=== PATIENT | male | born 1950 | race Caucasian/White ===

== ENCOUNTER → 2017-08-06 | Outpatient (CLI) | payer MEDICARE, BC ==
[~2017-08-06] MED LIST: COREG 25MG TAB25 MG PO; GLUCOPHAGE 500500 MG PO; IMDUR ER TAB 3030 MG PO; LOPRESSOR50 MG PO; NEURONTIN300 MG PO; NORVASC 5 MG TAB5 MG PO; POTASSIUM CHLO20 ME1 PO; PRAVASTATIN SOD40 MG PO; PRIMIDONE50 MG PO; PROTONIX40 MG PO; SEROQUEL50 MG PO; TOPAMAX25 MG PO
== END ==
LOC: CT 13:00
DX: R10.32 Left lower quadrant pain (principal)

== ENCOUNTER → 2021-04-11 | Outpatient (CLI) | payer MEDICARE ==
[~2021-04-11] MED LIST changes: +ARICEPT5 MG PO; +ASPIRIN81 MG PO; +ATORVASTATIN CA20 MG PO; +B COMPLEX1 EACH PO; +CALTRATE 600MG600 MG PO; +CLOPIDOGREL75 MG PO; +DAILY VALUE1 EACH PO; +DICYCLOMINE HCL10 MG PO; +FISH OIL 1,0001 EACH PO; -GLUCOPHAGE 500500 MG PO; +GLUCOPHAGE1000 MG PO; +GLUCOSAMINE1000 MG PO; +IBU800 MG PO; +IBUPROFEN600 MG PO; +LISINOPRIL10 MG PO; +LOPERAMIDE2 M1 PO; +MAG-OX 400 TAB400 MG PO; -NORVASC 5 MG TAB5 MG PO; +NORVASC5 MG PO; +ONDANSETRON ODT4 MG SL; +PAXIL10 MG PO; +VITAMIN C500 M4 PO; +VITAMIN D325 MCG PO; +ZOFRAN ODT 4 MG4 MG PO
== END ==
LOC: ECHO 13:30
DX: I25.10 Atherosclerotic heart disease of native coronary artery without angina pectoris (principal); I21.9 Acute myocardial infarction, unspecified
CPT/HCPCS: ECHO; 93306

== ENCOUNTER 2021-06-30 09:45 | Observation (INO) | payer MEDICARE ==
[~2021-06-30] VITALS: Ht 177.8 cm; Wt 87.2 kg
[~2021-06-30 09:45] MED LIST changes: -ARICEPT5 MG PO; -GLUCOPHAGE1000 MG PO; +METFORMIN HCL1000 MG PO
[2021-06-30 10:25] LABS: HEMOGLOBIN 14.4 gm/dl (14.0-17.5); RED BLOOD COUNT 4.55 M/UL (4.20-5.50); WHITE BLOOD COUNT 6.5 K/UL (4.5-11.0)
[2021-06-30 10:52] LABS: BUN/CREATININE RATIO 18 (0-10)
[2021-06-30] MEDS ORDERED: ARICEPT10 MG PO (13:50)
[2021-06-30] MEDS ORDERED: ATORVASTATIN CA80 MG PO (15:12)
[2021-06-30] MEDS ORDERED: PAROXETINE HCL10 MG PO (15:21)
[2021-06-30] MEDS ORDERED: PRAVASTATIN SOD40 MG PO (15:21)
[2021-06-30] MEDS ORDERED: TOPIRAMATE50 MG PO (15:22)
[2021-06-30] MEDS ORDERED: CLARITIN 10MG T10 MG PO (15:23)
[2021-06-30] MEDS ORDERED: FUROSEMIDE40 MG PO (15:24)
[2021-07-01 03:48] LABS: HEMOGLOBIN 12.9 gm/dl (14.0-17.5); WHITE BLOOD COUNT 6.9 K/UL (4.5-11.0)
[2021-07-01 03:52] LABS: RED BLOOD COUNT 4.09 M/UL (4.20-5.50)
[2021-07-01 04:46] LABS: ADENOVIRUS F 40/41 Not Detected (Negative); ASTROVIRUS Not Detected (Negative); CAMPYLOBACTER Not Detected (Negative); CLOSTRIDIUM DIFFICILE TOX A/B Not Detected (Negative); CRYPTOSPORIDIUM Not Detected (Negative); E.COLI 0157 Not Detected (Negative); ENTAMOEBA HISTOLYTICA Not Detected (Negative); ENTEROAGGREGATIVE E.COLI (EAEC Not Detected (Negative); ENTEROPATHOGENIC E.COLI (EPEC) Not Detected (Negative); ENTEROTOXIGENIC E.COLI (ETEC) Not Detected (Negative); GIARDIA LAMBLIA Not Detected (Negative); NOROVIRUS GI/GII Not Detected (Negative); PLESIOMONAS SHIGELLOIDES Not Detected (Negative); ROTOVIRUS A Not Detected (Negative); SALMONELLA Not Detected (Negative); SAPOVIRUS Not Detected (Negative); SHIG/ENTEROINVAS.ECOLI (EIEC) Not Detected (Negative); SHIGA-LIK TOX.PRO.E.COLI (STEC Not Detected (Negative); VIBRIO Not Detected (Negative); VIBRIO CHOLERAE Not Detected (Negative); YERSINIA ENTEROCOLITICA Not Detected (Negative)
[2021-07-02] MEDS ORDERED: AMLODIPINE BESYL5 MG PO (09:58)
[2021-07-02] MEDS ORDERED: ATORVASTATIN CA20 MG PO (09:58)
[2021-07-02] MEDS ORDERED: ISOSORBIDE MONO30 MG PO (09:58)
[2021-07-02] MEDS ORDERED: LOPRESSOR 25 MG25 MG PO (09:58)
[2021-07-02] MEDS ORDERED: ISOSORBIDE MONO60 MG PO (10:37)
[2021-07-02] MEDS ORDERED: NORVASC10 MG PO (10:37)
[2021-07-02] MEDS ORDERED: LIPITOR40 MG PO (10:37)
== END 2021-07-02 12:40 | disposition home or self-care (01) ==
LOC: ER1 09:45 → CDU 12:08 → MED SURG 4 19:01
PROVIDERS: Emergency Medicine; Physician Assistant Medical; ADMIT Internal Medicine Infectious Disease
DX: R55 Syncope and collapse (principal); R07.9 Chest pain, unspecified; D69.6 Thrombocytopenia, unspecified; E86.0 Dehydration; I25.10 Atherosclerotic heart disease of native coronary artery without angina pectoris; I25.2 Old myocardial infarction; E11.9 Type 2 diabetes mellitus without complications; I10 Essential (primary) hypertension; E78.5 Hyperlipidemia, unspecified; K21.9 Gastro-esophageal reflux disease without esophagitis; G93.89 Other specified disorders of brain; Z20.822 Contact with and (suspected) exposure to COVID-19; Z95.5 Presence of coronary angioplasty implant and graft; Z86.73 Personal history of transient ischemic attack (TIA), and cerebral infarction without residual deficits; Z79.02 Long term (current) use of antithrombotics/antiplatelets; Z79.84 Long term (current) use of oral hypoglycemic drugs; Z79.899 Other long term (current) drug therapy
CPT/HCPCS: 36415; 70450; 71045; 72125; 80048; 80053; 82550; 82553; 82962; 83735; 83874; 84484; 85025; 85027; 87507; 93005; 93880; 97116; 97116-GP-CQ; 97161; 97165; 97530-GP-CQ; 99285; G0378; U0002

== ENCOUNTER → 2021-07-06 | Outpatient (CLI) | payer MEDICARE ==
[~2021-07-06] MED LIST changes: +AMLODIPINE BESYL5 MG PO; +ARICEPT10 MG PO; +ATORVASTATIN CA80 MG PO; +CLARITIN 10MG T10 MG PO; +FUROSEMIDE40 MG PO; +ISOSORBIDE MONO30 MG PO; +ISOSORBIDE MONO60 MG PO; +LIPITOR40 MG PO; +LOPRESSOR 25 MG25 MG PO; +NORVASC10 MG PO; +PAROXETINE HCL10 MG PO; +TOPIRAMATE50 MG PO
== END ==
LOC: LAB 13:54
PROVIDERS: Family Medicine
DX: R73.02 Impaired glucose tolerance (oral) (principal); E78.5 Hyperlipidemia, unspecified
CPT/HCPCS: 36415; 80053; 80061; 83036

== ENCOUNTER 2021-12-17 12:48 | Inpatient (IN) | payer MEDICARE ==
[~2021-12-17] VITALS: Ht 177.8 cm; Wt 88.5 kg
[2021-12-17 13:58] LABS: HEMOGLOBIN 13.3 gm/dl (14.0-17.5); RED BLOOD COUNT 4.25 M/UL (4.20-5.50); WHITE BLOOD COUNT 8.3 K/UL (4.5-11.0)
[2021-12-17] MEDS ORDERED: AMLODIPINE BESYL5 MG PO (16:26)
[2021-12-17] MEDS ORDERED: ISOSORBIDE MONO30 MG PO (16:30)
[2021-12-17] MEDS ORDERED: CARVEDILOL25 MG PO (16:33)
[2021-12-17] MEDS ORDERED: ASPIRIN EC81 MG PO (17:44)
[2021-12-18 02:42] LABS: HEMOGLOBIN 13.9 gm/dl (14.0-17.5); RED BLOOD COUNT 4.44 M/UL (4.20-5.50); WHITE BLOOD COUNT 6.5 K/UL (4.5-11.0)
[2021-12-18 04:38] LABS: BUN/CREATININE RATIO 15 (0-10)
[2021-12-19 04:23] LABS: HEMOGLOBIN 13.6 gm/dl (14.0-17.5); RED BLOOD COUNT 4.36 M/UL (4.20-5.50); WHITE BLOOD COUNT 6.6 K/UL (4.5-11.0)
[2021-12-20 04:51] LABS: RED BLOOD COUNT 4.54 M/UL (4.20-5.50); WHITE BLOOD COUNT 7.9 K/UL (4.5-11.0)
--- NOTE | 2021-12-20 10:37 | NUR ---
PATIENT RETURNED FROM [facility] AT 1025. BP 188/111. PATIENT AAOX3. BP RETAKEN 189/93. RETAKEN 180/89. RECEIVED METOPROLOL 5MG IVP IN [employer] [facility] [facility]. WCTM. ADVISED PATIENT TO LIE FLAT AND REFRAIN FROM MOVING RIGHT LEG X3 HOURS. PATIENT VERBALIZED UNDERSTANDING. PRESSURE DRESSING NOTED TO RIGHT GROIN AREA. CDI. NO BLEEDING NOTED.
[2021-12-21 06:52] LABS: HEMOGLOBIN 13.7 gm/dl (14.0-17.5); RED BLOOD COUNT 4.47 M/UL (4.20-5.50); WHITE BLOOD COUNT 8.1 K/UL (4.5-11.0)
--- NOTE | 2021-12-21 09:42 | NUR ---
pt returned from tilt table testing, unable to complete per staff.
[2021-12-21] MEDS ORDERED: RANEXA500 MG PO (13:34)
[2021-12-21] MEDS ORDERED: LOPRESSOR 25 MG25 MG PO (13:44)
[2021-12-21] MEDS ORDERED: FLORINEF 0.1 M0.1 MG PO (13:44)
== END 2021-12-21 18:03 | disposition home or self-care (01) | DRG 287 ==
LOC: ER1 12:48 → CDU 16:19 → M/S 16:19
PROVIDERS: Emergency Medicine; Internal Medicine; Physician Assistant Medical; ADMIT Internal Medicine
PROC: B24BZZZ Ultrasonography of Heart with Aorta (ICD-10-PCS; principal; 2021-12-20)
PROC: 4A023N7 Measurement of Cardiac Sampling and Pressure, Left Heart, Percutaneous Approach (ICD-10-PCS; 2021-12-20)
PROC: 4A00X4Z Measurement of Central Nervous Electrical Activity, External Approach (ICD-10-PCS; 2021-12-20)
PROC: B2111ZZ Fluoroscopy of Multiple Coronary Arteries using Low Osmolar Contrast (ICD-10-PCS; 2021-12-20)
PROC: 4A02XFZ Measurement of Cardiac Rhythm, External Approach (ICD-10-PCS; 2021-12-21)
PROC: 4A03XB1 Measurement of Arterial Pressure, Peripheral, External Approach (ICD-10-PCS; 2021-12-21)
DX: I95.1 Orthostatic hypotension (principal); I47.1 Supraventricular tachycardia; N17.9 Acute kidney failure, unspecified; Z20.822 Contact with and (suspected) exposure to COVID-19; I25.10 Atherosclerotic heart disease of native coronary artery without angina pectoris; I51.7 Cardiomegaly; I35.0 Nonrheumatic aortic (valve) stenosis; R00.1 Bradycardia, unspecified; F41.9 Anxiety disorder, unspecified; F32.A Depression, unspecified; E11.9 Type 2 diabetes mellitus without complications; E78.5 Hyperlipidemia, unspecified; I10 Essential (primary) hypertension; E87.6 Hypokalemia; K21.9 Gastro-esophageal reflux disease without esophagitis; M54.9 Dorsalgia, unspecified; G89.29 Other chronic pain; R29.810 Facial weakness; E86.0 Dehydration; Z86.73 Personal history of transient ischemic attack (TIA), and cerebral infarction without residual deficits; Z90.49 Acquired absence of other specified parts of digestive tract; Z90.89 Acquired absence of other organs; Z98.890 Other specified postprocedural states; Z79.4 Long term (current) use of insulin; Z79.84 Long term (current) use of oral hypoglycemic drugs; Z82.49 Family history of ischemic heart disease and other diseases of the circulatory system; I25.2 Old myocardial infarction; Z79.899 Other long term (current) drug therapy
CPT/HCPCS: ECHO; 36415; 70450; 70496; 70498; 78452; 80048; 80053; 82550; 82553; 82962; 83036; 83735; 83880; 84132; 84439; 84443; 84484; 85025; 85027; 85610; 85730; 93005; 93017; 93270; 93306; 95816; 99152; 99153; 99285; A9502; C1769; C1887; G0378; J0360; J0461; J1644; J2250; J2785; J3010; J7030; Q9967; U0002

== ENCOUNTER → 2022-06-16 | Outpatient (CLI) | payer MEDICARE ==
[~2022-06-16] MED LIST changes: +ASPIRIN EC81 MG PO; +CARVEDILOL25 MG PO; +FLORINEF 0.1 M0.1 MG PO; +RANEXA500 MG PO
== END ==
LOC: KOH-I 09:10
DX: F09 Unspecified mental disorder due to known physiological condition (principal); I67.82 Cerebral ischemia; G93.89 Other specified disorders of brain
CPT/HCPCS: 70450

== ENCOUNTER → 2022-06-28 | Day surgery (SDC) | payer MEDICARE | END | disposition home or self-care (01) | LOC: OR 06:48 | PROVIDERS: Internal Medicine Gastroenterology | PROC: 0DJD8ZZ Inspection of Lower Intestinal Tract, Via Natural or Artificial Opening Endoscopic (ICD-10-PCS; 2022-06-28) | PROC: 0DB78ZX Excision of Stomach, Pylorus, Via Natural or Artificial Opening Endoscopic, Diagnostic (ICD-10-PCS; principal; 2022-06-28 09:00) | PROC: 0DB98ZX Excision of Duodenum, Via Natural or Artificial Opening Endoscopic, Diagnostic (ICD-10-PCS; 2022-06-28 09:00) | DX: K31.89 Other diseases of stomach and duodenum (principal); R19.7 Diarrhea, unspecified; K64.1 Second degree hemorrhoids; K60.2 Anal fissure, unspecified; I25.10 Atherosclerotic heart disease of native coronary artery without angina pectoris; E78.00 Pure hypercholesterolemia, unspecified; I10 Essential (primary) hypertension; H54.61 Unqualified visual loss, right eye, normal vision left eye; I25.2 Old myocardial infarction; Z79.02 Long term (current) use of antithrombotics/antiplatelets; Z79.82 Long term (current) use of aspirin; Z79.899 Other long term (current) drug therapy; Z86.73 Personal history of transient ischemic attack (TIA), and cerebral infarction without residual deficits; Z95.5 Presence of coronary angioplasty implant and graft | CPT/HCPCS: J2704; J7040 ==